=== PATIENT | male | born 1980 | race Caucasian/White ===

== ENCOUNTER → 2023-11-02 13:33 | Outpatient (REF) | payer OTHER, SELFPAY | LOC: EMG 13:33 | PROVIDERS: ATTENDING PHYSICIAN Orthopaedic Surgery Hand Surgery; FAMILY PHYSICIAN Family Medicine | DX: M25.521 Pain in right elbow (principal); M25.522 Pain in left elbow; R20.0 Anesthesia of skin | CPT/HCPCS: 95886; 95911 ==